=== PATIENT | male | born 1980 | race Caucasian/White ===

== ENCOUNTER 2017-10-07 05:31 | Emergency (ER) | payer MEDICAID ==
[~2017-10-07] VITALS: Ht 188 cm; Wt 72.6 kg
[2017-10-07 05:35] VITALS: BP 137/80
== END 2017-10-07 06:55 | disposition left against medical advice (07) ==
LOC: ED 06:49
DX: L03.113 Cellulitis of right upper limb (principal); F17.210 Nicotine dependence, cigarettes, uncomplicated; Z90.49 Acquired absence of other specified parts of digestive tract
CPT/HCPCS: 99284

== ENCOUNTER 2017-12-21 22:36 | Emergency (ER) | payer MEDICAID ==
[~2017-12-21] VITALS: Ht 185.4 cm; Wt 80.0 kg
[2017-12-21 22:42] VITALS: BP 143/74
[2017-12-21] MEDS ORDERED: CEPHALEXIN 500 MG CAPSULE PO ONE (23:00)
[2017-12-21] MEDS ORDERED: SULFAMETH./TRIMETHOPRIM DS 800MG/160MG TABLET PO ONE (23:00)
[2017-12-21] MEDS ORDERED: IBUPROFEN 200 MG TABLET PO ONE (23:00)
[2017-12-21] MEDS ORDERED: DOXYCYCLINE 100MG CAP PO ONE (23:30)
[2017-12-21] MEDS ORDERED: SULFAMETH./TRIMETHOPRIM DS 800MG/160MG TABLET ONE (23:39)
[2017-12-21] MEDS ORDERED: IBUPROFEN 200 MG TABLET ONE (23:39)
== END 2017-12-21 23:53 | disposition home or self-care (01) ==
LOC: ED 22:50
DX: G89.11 Acute pain due to trauma (principal); L03.031 Cellulitis of right toe; M79.671 Pain in right foot; I89.1 Lymphangitis; F17.200 Nicotine dependence, unspecified, uncomplicated; Z72.9 Problem related to lifestyle, unspecified
CPT/HCPCS: 99284